=== PATIENT | male | born 1945 | race Caucasian/White ===

== ENCOUNTER 2018-10-09 07:04 | Day surgery (SDC) | payer MEDICARE, BC ==
[~2018-10-09] VITALS: Ht 172.7 cm; Wt 59.8 kg
[~2018-10-09 07:04] MED LIST: ASPIRIN 32325 MG/TA1 PO; ASPIRIN 32325 MG/TAB PO; EFFIENT10 MG PO; LIPITOR 40MG TA40 MG PO; MAALOX EXTRA S150 ML PO; NITROSTAT0.4 MG/TAB SL; PHENERGAN25 MG RC; PRIL40 PO; TYLENOL 325MG325 MG PO; VITAMIN D32000 I1 PO
[2018-10-09] MEDS ORDERED: ARICEPT10 MG PO (07:37)
[2018-10-09] MEDS ORDERED: ASPIRIN 81M81 MG/TA2 PO (07:37)
[2018-10-09 07:38] VITALS: BP 127/84; PULSE 59; TEMP 98.5
[2018-10-09 08:55] VITALS: BP 108/60; PULSE 52; TEMP 97.7
[2018-10-09 09:10] VITALS: BP 105/57; PULSE 47
[2018-10-09 09:25] VITALS: BP 121/70; PULSE 52
== END 2018-10-09 09:42 | disposition home or self-care (01) ==
LOC: SDCO 07:04
DX: D12.2 Benign neoplasm of ascending colon (principal); K63.5 Polyp of colon; K64.0 First degree hemorrhoids; I25.10 Atherosclerotic heart disease of native coronary artery without angina pectoris; E78.5 Hyperlipidemia, unspecified; Z95.5 Presence of coronary angioplasty implant and graft; Z79.82 Long term (current) use of aspirin; Z86.010 Personal history of colon polyps; Z85.46 Personal history of malignant neoplasm of prostate
CPT/HCPCS: J2250; J3010; J7030